=== PATIENT | female | born 1950 | race Two or more races ===

== ENCOUNTER 2021-07-16 09:30 | Inpatient (IN) | payer OTHER ==
[~2021-07-16] VITALS: Ht 154.9 cm; Wt 59.0 kg
[2021-07-16] MEDS ORDERED: PLAVIX75 MG PO (11:59)
[2021-07-16] MEDS ORDERED: VASOTEC5 MG PO (11:59)
[2021-07-16] MEDS ORDERED: GLIMEPIRIDE1 MG (12:00)
[2021-07-16] MEDS ORDERED: SINGULAIR10 MG PO (12:00)
[2021-07-16] MEDS ORDERED: ZESTRIL20 MG PO (12:00)
[2021-07-16] MEDS ORDERED: VITAMIN C500 MG PO (12:01)
[2021-07-16] MEDS ORDERED: NEXIUM40 M1 PO (12:01)
[2021-07-16] MEDS ORDERED: ZOCOR20 MG PO (12:01)
[2021-07-16] MEDS ORDERED: D3 + K2 DOTS 11 EACH PO (12:01)
[2021-08-12] MEDS ORDERED: FAMOTIDINE20 MG PO (08:47)
[2021-08-12] MEDS ORDERED: HYOSCYAMINE0.125 M1 SL (08:47)
[2021-08-12] MEDS ORDERED: PANTOPRAZOLE SO40 MG PO (08:48)
[2021-08-12] MEDS ORDERED: ULTRACET PO (08:48)
[2021-08-12] MEDS ORDERED: CARAFATE1 GM PO (08:48)
== END 2021-08-12 13:33 | disposition home or self-care (01) | DRG 330 ==
LOC: SURH 07-18 07:00 → O/R 08-08 05:35 → SURH 08-08 05:35
PROVIDERS: ADMIT Surgery; ATTEND Surgery
PROC: 0DTN4ZZ Resection of Sigmoid Colon, Percutaneous Endoscopic Approach (ICD-10-PCS; principal; 2021-08-09)
PROC: 0DBP4ZZ Excision of Rectum, Percutaneous Endoscopic Approach (ICD-10-PCS; 2021-08-09)
PROC: 0DJD8ZZ Inspection of Lower Intestinal Tract, Via Natural or Artificial Opening Endoscopic (ICD-10-PCS; 2021-08-09)
DX: K57.30 Diverticulosis of large intestine without perforation or abscess without bleeding (principal); K56.50 Intestinal adhesions [bands], unspecified as to partial versus complete obstruction; K25.9 Gastric ulcer, unspecified as acute or chronic, without hemorrhage or perforation; N73.6 Female pelvic peritoneal adhesions (postinfective); N99.4 Postprocedural pelvic peritoneal adhesions

== ENCOUNTER 2025-04-15 11:15 | Inpatient (IN) | payer OTHER ==
[~2025-04-15] VITALS: Ht 154.9 cm; Wt 61.7 kg
[~2025-04-15 11:15] MED LIST: CARAFATE1 GM PO; D3 + K2 DOTS 11 EACH PO; FAMOTIDINE20 MG PO; GLIMEPIRIDE1 MG; HYOSCYAMINE0.125 M1 SL; NEXIUM40 M1 PO; PANTOPRAZOLE SO40 MG PO; PLAVIX75 MG PO; SINGULAIR10 MG PO; ULTRACET PO; VASOTEC5 MG PO; VITAMIN C500 MG PO; ZESTRIL20 MG PO; ZOCOR20 MG PO
[2025-04-18] MEDS ORDERED: FARXIGA5 MG PO (13:06)
[2025-04-18] MEDS ORDERED: ZOLOFT50 MG PO (13:07)
[2025-04-18] MEDS ORDERED: ATORVASTATIN CA20 MG PO (13:07)
[2025-04-18 13:08] VITALS: BP 160/84
[2025-04-18] MEDS ORDERED: IRBESARTAN75 MG PO (13:12)
[2025-04-18] MEDS ORDERED: VALSARTAN80 MG PO (15:01)
[2025-04-18] MEDS ORDERED: RAYOS2 MG PO (15:01)
[2025-04-18] MEDS ORDERED: MELOXICAM15 MG PO (15:02)
[2025-04-18] MEDS ORDERED: NORVASC5 MG PO (15:03)
[2025-04-27] MEDS ORDERED: METRONIDAZOLE/SODIUM CHLORIDE 500 MG/100 ML PIGGYBACK IV ONE (10:18)
[2025-04-27] MEDS ORDERED: CEFTRIAXONE SODIUM 2,000 MG VIAL ONE (10:18)
[2025-04-27] MEDS ORDERED: GENTAMICIN SULFATE 40 MG/ML VIAL ONE (10:18)
[2025-04-27] MEDS ORDERED: BUPIVACAINE HCL/MPF 0.5% 30ML VIAL ONE (12:21)
[2025-04-27] MEDS ORDERED: DIBUCAINE 30 GM TUBE ONE (12:21)
[2025-04-27] MEDS ORDERED: HEMOSTATIC MATRIX 1 KIT KIT TOP ONE (12:21)
[2025-04-27] MEDS ORDERED: POVIDONE-IODINE 118 ML BOTT TOP ONE (12:21)
[2025-04-27] MEDS ORDERED: LIDOCAINE HCL 1%/EPINEPHRINE 20ML VIAL IJ ONE ×2 (12:22→13:06)
[2025-04-27] MEDS ORDERED: MORPHINE SULFATE 2 MG/ML SYRINGE IV ONE (18:45)
[2025-04-27] MEDS ORDERED: OxyCODONE HCL 5 MG TABLET (ROXICODONE) PO PRN (19:45)
[2025-04-27] MEDS ORDERED: ONDANSETRON HCL 2 MG/ML VIAL IV PRN (19:45)
[2025-04-27] MEDS ORDERED: MORPHINE SULFATE 4 MG/ML CARTRIDGE IV PRN (19:45)
[2025-04-27] MEDS ORDERED: RINGERS SOLUTION,LACTATED 1,000 ML IV SCH (19:45)
[2025-04-27] MEDS ORDERED: ACETAMINOPHEN 500 MG GEL..CAP PO SCH (20:00)
[2025-04-27 20:10] VITALS: BP 131/70; O2SAT 96
[2025-04-27] MEDS ORDERED: CELECOXIB 200 MG CAPSULE PO SCH (21:00)
[2025-04-27] MEDS ORDERED: SIMETHICONE 125 MG CAPSULE PO SCH (21:00)
[2025-04-27] MEDS ORDERED: FAMOTIDINE/PF 20 MG/2 ML VIAL IV PUSH SCH (21:00)
[2025-04-28 00:35] VITALS: BP 137/67; O2SAT 98
[2025-04-28] MEDS ORDERED: GABAPENTIN 300 MG CAPSULE PO SCH (01:00)
[2025-04-28] MEDS ORDERED: LACTOBACILLUS ACIDOPHILUS 1 CAP CAP PO SCH (09:00)
[2025-04-28] MEDS ORDERED: HYOSCYAMINE SULFATE 0.125 MG TAB.SUBL SL SCH (09:00)
[2025-04-28 09:02] VITALS: BP 167/73; O2SAT 96
[2025-04-28] MEDS ORDERED: CELECOXIB200 MG PO (13:49)
[2025-04-28] MEDS ORDERED: TRAM1TAB98 PO (13:49)
[2025-04-28] MEDS ORDERED: ANUSOL-HC30 G2 TOP (13:50)
[2025-04-28] MEDS ORDERED: ENOXAPARIN SODIUM 40 MG/0.4 ML SYRINGE SUBCUTANEO SCH (17:00)
[2025-04-29] MEDS ORDERED: ENOXAPARIN SODIUM 40 MG/0.4 ML SYRINGE SUBCUTANEO SCH (09:00)
== END 2025-04-28 16:59 | disposition home or self-care (01) | DRG 748 ==
LOC: O/R 04-27 08:00 → SURG 04-27 11:15
PROVIDERS: ADMIT Surgery; ATTEND Surgery
PROC: 3E0T3BZ Introduction of Anesthetic Agent into Peripheral Nerves and Plexi, Percutaneous Approach (ICD-10-PCS; 2025-04-27)
PROC: 0JQC0ZZ Repair Pelvic Region Subcutaneous Tissue and Fascia, Open Approach (ICD-10-PCS; principal; 2025-04-27 13:15)
DX: N81.6 Rectocele (principal)